=== PATIENT | male | born 1965 | race Two or more races ===

== ENCOUNTER → 2024-11-10 | Outpatient (CLI) | payer MEDICAID, SELFPAY ==
--- NOTE | 2024-11-10 14:48 | XR_ITS ---
Examination: Abdomen AP single view Technique: AP portable supine abdomen, single view Exam date and time: November 20, 2024 1521 hours INDICATIONS: History kidney stones. FINDINGS: 3 mm left renal calculus No ureteral calculi Nonobstructive bowel gas pattern IMPRESSION: 3 mm left renal calculus
--- NOTE | 2024-11-10 15:00 | XR_ITS ---
Examination: Retroperitoneal ultrasound, complete Technique: Multiple high resolution grayscale images of the retroperitoneum obtained, including kidneys and bladder. Exam date and time:November 10, 2024 1450 hours INDICATIONS: Pelvic pain beginning 6 months ago, history kidney stones FINDINGS: Right kidney 11.2 cm renal cortex 2.0 cm Medial 31 mm cyst Multiple calculi, the largest 8 mm Left kidney 11.4 cm renal cortex 1.3 cm Multiple calculi, the largest 8 mm 10 mm cyst Moderate bilateral renal parenchymal scar formation Bladder prevoid volume 148 cc postvoid volume 86 cc Moderate prostatomegaly 4.1 x 3.7 x 3.9 cm no prostate nodules IMPRESSION: Bilateral nonobstructing renal calculi Moderate bilateral renal parenchymal scar formation
== END | disposition home or self-care (01) ==
PROVIDERS: PCP Nurse Practitioner Family; Referring Provider Surgery; Visit Provider Surgery
DX: N20.0 Calculus of kidney (principal); N28.89 Other specified disorders of kidney and ureter
CPT/HCPCS: 74018; 76770

== ENCOUNTER → 2025-07-12 | Outpatient (CLI) | payer MEDICAID, SELFPAY ==
--- NOTE | 2025-07-12 13:30 | XR_ITS ---
Examination: Breast ultrasound, unilateral, left complete Date and time of exam: July 12, 2025, 1354 hours INDICATIONS: Left axillary palpable lump 1 month, no family history of breast cancer Technique: Real-time vicente scale ultrasonographic imaging performed left breast including all 4 quadrants as well as nipple retroareolar and axillary region. Findings: Left axillary 4.1 x 2.7 cm lymph node with some distortion of internal architecture IMPRESSION: Abnormal appearing left axillary lymph node, recommend CT chest post intravenous contrast follow-up
== END | disposition home or self-care (01) ==
PROVIDERS: PCP Physician Assistant; Referring Provider Physician Assistant; Visit Provider Physician Assistant
DX: R92.8 Other abnormal and inconclusive findings on diagnostic imaging of breast (principal)
CPT/HCPCS: 76641